=== PATIENT | male | born 1995 | race Caucasian/White ===

== ENCOUNTER 2019-09-29 23:54 | Emergency (ER) | payer BC, OTHER ==
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
[2019-09-30 00:22] LABS: ABS Lymphocytes 1.4 10^3/ul (1.0-4.8); ABS Monocytes 0.6 10^3/ul (0-0.8); ABS Neutrophils 7.7 10^3/ul (1.5-7.7); Eosinophil % 0.2 %; Hematocrit 47 % (42-52); Hemoglobin 16.3 g/dL (14.0-18.0); Mean Corpuscular HGB Conc 35 g/dL (31-36); Mean Corpuscular Hemoglobin 32 pg (27-31); Mean Corpuscular Volume 92 fL (80-94); Mean Platelet Volume 8.6 fL (7.4-10.4); Nucleated Red Blood Cells % 0.1; Platelet Count 243 10^3/uL (150-450); Red Blood Count 5.05 10^6 /uL (4.18-5.48); Red Cell Distribution Width 13 % (10-15); White Blood Count 9.7 10^3/uL (3.5-10.8)
[2019-09-30 00:40] LABS: ALT 20 U/L (7-52); AST 22 U/L (13-39); Albumin 5.2 g/dL (3.2-5.2); Albumin/Globulin Ratio 1.9 (1-3); Alkaline Phosphatase 67 U/L (34-104); Anion Gap 12 mmol/L (2-11); BUN/Creatinine Ratio 14.8 (8-20); Blood Urea Nitrogen 16 mg/dL (6-24); CO2 Carbon Dioxide 25 mmol/L (22-32); Calcium 10.4 mg/dL (8.6-10.3); Chloride 102 mmol/L (101-111); EGFR Non-African American 82.6 (>60); Globulin 2.8 g/dL (2-4); Glucose 83 mg/dL (70-100); Sodium 139 mmol/L (135-145)
[2019-09-30 00:53] LABS: Acetaminophen < 15 mcg/mL; Alcohol 37 mg/dL (<10); Salicylate < 2.50 mg/dL (<30)
[2019-09-30 01:05] LABS: Urine Benzodiazepine Screen None Detected (None Detect); Urine Opiates Screen None Detected (None Detect)
[2019-09-30 01:07] LABS: TSH (Thyroid Stimulating Horm) 4.25 mcIU/mL (0.34-5.60)
[2019-09-30 02:05] LABS: Urine Appearance Clear; Urine Bilirubin Negative (Negative); Urine Blood Negative (Negative); Urine Color Yellow; Urine Glucose Negative (Negative); Urine Ketones Negative (Negative); Urine Nitrite Negative (Negative); Urine Protein Negative (Negative); Urine Specific Gravity 1.012 (1.010-1.030); Urine Urobilinogen Negative (Negative)
[2019-09-30 02:14] VITALS: BP 136/82
== END 2019-09-30 02:11 | disposition home or self-care (01) ==
LOC: ED 23:54
DX: F43.0 Acute stress reaction (principal); R45.850 Homicidal ideations; Z87.891 Personal history of nicotine dependence
CPT/HCPCS: 36415; 80053; 80307; 80320; 80329; 81003; 84443; 85025; 99284; G0480

== ENCOUNTER 2019-11-26 14:35 | Emergency (ER) | payer OTHER ==
--- NOTE | 2019-11-26 16:02 | ED ---
Throat Pain/Nasal Congestion - HPI Summary HPI Summary: 24 year old M presenting to [facility] with a chief complaint of congestion, gum pain , and burning in his nose since using cocaine last night. The patient rates the pain 7/10 in severity. Symptoms aggravated by nothing. Symptoms alleviated by nothing. Patient reports that he is concerned there may have been something else in the cocaine. He denies any epistaxis, cough, or fever. Medication list reviewed. Allergy list reviewed. - History of Current Complaint Chief Complaint: EDGeneral Time Seen by Provider: 11/26/19 15:55 Hx Obtained From: Patient Onset/Duration: Lasting Hours Severity: Moderate Associated Signs And Symptoms: Positive: Negative - Epistaxis, cough, fever, Sinus Discomfort, Nasal Discharge - Allergies/Home Medications Allergies/Adverse Reactions: Allergies Allergy/AdvReac Type Severity Reaction Status Date / Time No Known Allergies Allergy Verified 11/26/19 14:45 Home Medications: Home Medications Mirtazapine TAB* [Remeron TAB*] 22.5 mg PO BEDTIME 11/26/19 [History Confirmed 11/26/19] lamoTRIgine TAB(*) [LaMICtal TAB(*)] 75 mg PO BEDTIME 11/26/19 [History Confirmed 11/26/19] PMH/Surg Hx/FS Hx/Imm Hx Endocrine/Hematology History: Denies: Hx Diabetes Cardiovascular History: Denies: Hx Hypertension Psychiatric History: Reports: Hx Depression - Surgical History Surgical History: Yes Surgery Procedure, Year, and Place: addenoids and tonsills. abdomen surgery at age 1 Infectious Disease History: No Infectious Disease History: Denies: Traveled Outside the [place] in Last 30 Days - Family History Known Family History: Positive: Other - Mental illnesses Negative: Hypertension, Diabetes - Social History Alcohol Use: Occasionally Alcohol Amount: WEEKENDS Hx Substance Use: Yes Substance Use Type: Reports: Cocaine Substance Use Comment - Amount & Last Used: a little Smoking Status (MU): Former Smoker Type: Cigarettes Amount Used/How Often: occasional social smoking in the past Review of Systems Negative: Fever Positive: Nasal Discharge, Other - Congestion, burning in his nose, gum pain. Negative: Epistaxis Negative: Cough All Other Systems Reviewed And Are Negative: Yes Physical Exam - Summary Physical Exam Summary: Constitutional: Well-developed, Well-nourished, Alert. (-) Distressed Skin: Warm, Dry HENT: Normal appearing dentition and nasal mucosa. Eyes: Conjunctiva normal Neck: Musculoskeletal ROM normal neck. (-) JVD, (-) Stridor, (-) Tracheal deviation Cardio: Rhythm regular, rate normal, Heart sounds normal; Intact distal pulses; The pedal pulses are 2+ and symmetric. Radial pulses are 2+ and symmetric. (-) Murmur Pulmonary/Chest wall: Effort normal. (-) Respiratory distress, (-) Wheezes, (-) Rales Abd: Soft, (-) tenderness, (-) Distension, (-) Guarding, (-) Rebound Musculoskeletal: (-) Edema Lymph: (-) Cervical adenopathy Neuro: Alert, Oriented x3 Psych: Mood and affect Normal Triage Information Reviewed: Yes Vital Signs On Initial Exam: Initial Vitals Temp Pulse Resp BP Pulse Ox 98.6 F 88 16 138/105 95 11/26/19 14:43 11/26/19 14:43 11/26/19 14:43 11/26/19 14:43 11/26/19 14:43 Vital Signs Reviewed: Yes Procedures - Sedation Patient Received Moderate/Deep Sedation with Procedure: No Diagnostics - Vital Signs Vital Signs Temp Pulse Resp BP Pulse Ox 11/26/19 14:43 98.6 F 88 16 138/105 95 - Laboratory Lab Statement: Any lab studies that have been ordered have been reviewed, and results considered in the medical decision making process. EENT Course/Dx - Course Course Of Treatment: 24 year old M presenting to [facility] with a chief complaint of congestion, gum pain, and burning in his nose since using cocaine last night. Physical exam findings: Normal appearing dentition and nasal mucosa. Patient will be discharged with follow up from Dr. Malcolm. The patient is agreeable with this plan. - Diagnoses Provider Diagnoses: Cocaine abuse - Critical Care Time Critical Care Statement: Critical care time is provided exclusive of any time spent performing procedures. Discharge ED - Sign-Out/Discharge Documenting (check all that apply): Patient Departure - Discharge Plan Condition: Stable Disposition: HOME Patient Education Materials: Cocaine Abuse (ED) Referrals: Nicola Malcolm MD [Primary Care Provider] - 3 Days Additional Instructions: Follow-up with your PCP in 1-3 days. Return to the emergency department for changing or worsening symptoms. - Billing Disposition and Condition Condition: STABLE Disposition: Home - Attestation Statements Document Initiated by Scribe: Yes Documenting Scribe: Sondra Chin Provider For Whom Scribe is Documenting (Include Credential): Refugio Rodas DO Scribe Attestation: Sondra Lopez scribed for Refugio Rodas DO on 11/26/19 at 1831. Scribe Documentation Reviewed: Yes Provider Attestation: The documentation as recorded by the [email or web address] accurately reflects the service I personally performed and the decisions made by , Refugio Rodas DO Status of Scribe Document: Viewed
[2019-11-26] MEDS ORDERED: Ibuprofen TAB* 400 MG PO ONE (16:13)
[2019-11-26 16:24] VITALS: BP 135/105
== END 2019-11-26 16:24 | disposition home or self-care (01) ==
LOC: ED 14:35
DX: F14.10 Cocaine abuse, uncomplicated (principal); F32.9 Major depressive disorder, single episode, unspecified; Z87.891 Personal history of nicotine dependence; R09.81 Nasal congestion; K13.79 Other lesions of oral mucosa
CPT/HCPCS: 99282; A9270-GY

== ENCOUNTER 2020-11-16 21:48 | Inpatient (IN) ==
[2020-11-16 22:35] LABS: ABS Eosinophils 0.2 10^3/ul (0-0.6); ABS Lymphocytes 2.5 10^3/ul (1.0-4.8); ABS Monocytes 0.8 10^3/ul (0-0.8); ABS Neutrophils 4.3 10^3/ul (1.5-7.7); Hematocrit 44 % (42-52); Hemoglobin 14.9 g/dL (14.0-18.0); Mean Corpuscular HGB Conc 34 g/dL (31-36); Mean Corpuscular Hemoglobin 31 pg (27-31); Mean Corpuscular Volume 91 fL (80-94); Mean Platelet Volume 8.7 fL (7.4-10.4); Platelet Count 326 10^3/uL (150-450); Red Cell Distribution Width 13 % (10-15); White Blood Count 7.9 10^3/uL (3.5-10.8)
[2020-11-16 22:44] LABS: ALT 51 U/L (7-52); AST 32 U/L (13-39); Albumin 4.6 g/dL (3.2-5.2); Albumin/Globulin Ratio 1.7 (1-3); Alkaline Phosphatase 61 U/L (34-104); Anion Gap 9 mmol/L (2-11); BUN/Creatinine Ratio 17.8 (8-20); Blood Urea Nitrogen 19 mg/dL (6-24); CO2 Carbon Dioxide 28 mmol/L (22-32); Calcium 9.9 mg/dL (8.6-10.3); Chloride 101 mmol/L (101-111); EGFR African American 100.3 (>60); EGFR Non-African American 82.9 (>60); Globulin 2.7 g/dL (2-4); Glucose 95 mg/dL (70-100); Potassium 3.5 mmol/L (3.5-5.0); Sodium 138 mmol/L (135-145); Total Protein 7.3 g/dL (6.4-8.9)
[2020-11-16 23:04] LABS: Acetaminophen < 15 mcg/mL; Alcohol, S < 10 mg/dL (<10); Salicylate < 2.50 mg/dL (<30)
[2020-11-16 23:18] LABS: TSH Ultra Thyroid Stim Horm 3.12 mcIU/mL (0.34-5.60)
[2020-11-17 00:44] LABS: Urine Appearance Clear; Urine Bilirubin Negative (Negative); Urine Blood Negative (Negative); Urine Color Yellow; Urine Glucose Negative (Negative); Urine Ketones Negative (Negative); Urine Nitrite Negative (Negative); Urine Protein Negative (Negative); Urine Specific Gravity 1.008 (1.002-1.030); Urine Urobilinogen Negative (Negative)
[2020-11-17 01:01] LABS: Urine Benzodiazepine Screen None Detected (None Detect); Urine Cannabinoids Screen Presumptive Positive (None Detect); Urine Opiates Screen None Detected (None Detect)
[2020-11-17] MEDS ORDERED: LORazepam 2 mg VIAL 1 ml IM ONE (05:04)
[2020-11-17] MEDS ORDERED: Haloperidol 5 mg/ml SDV IV/IM 5 MG/ML AMP IM ONE (05:04)
[2020-11-17] MEDS ORDERED: diPHENhydraMINE IV 50 MG/ML 1 ml VIAL (BENADRYL) IM ONE (05:04)
[2020-11-17] MEDS ORDERED: Lorazepam PYXIS KEY ONE (05:05)
[2020-11-18 08:54] LABS: HDL Cholesterol 28.4 mg/dL
[2020-11-19] MEDS: Venlafaxine XR 75 mg PO SCH (14:33)
[2020-11-19] MEDS: Al Hydrox/Mg Hydrox/Simet LIQ 30 ML UDC PO PRN ×2 (18:34→22:54)
[2020-11-20 08:21] VITALS: BP 123/76
[2020-11-20] MEDS: Venlafaxine XR 75 mg PO SCH (08:52)
[2020-11-20] MEDS: Al Hydrox/Mg Hydrox/Simet LIQ 30 ML UDC PO PRN (09:32)
== END 2020-11-20 10:15 | disposition home or self-care (01) | DRG 751 ==
LOC: ED 21:48 → BSU 11-17 14:59
PROVIDERS: ADMIT Psychiatry & Neurology Psychiatry; ATTEND Psychiatry & Neurology Psychiatry